=== PATIENT | male | born 1955 | race Caucasian/White ===

== ENCOUNTER → 2016-08-31 | Outpatient (CLI) | payer BC ==
--- NOTE | 2016-09-01 10:32 | CARD ---
APPROVED REPORT EXAM: Two-dimensional and M-mode echocardiogram with Doppler and color Doppler. Other Information Quality : Average Rhythm : NSR INDICATION Arrhythmia Tachycardia 2D DIMENSIONS RVDd3.8 (2.9-3.5cm)Left Atrium(2D)4.0 (1.6-4.0cm) IVSd1.0 (0.7-1.1cm)Aortic Root(2D)3.2 (2.0-3.7cm) LVDd3.7 (3.9-5.9cm)LVOT Diameter2.1 (1.8-2.4cm) PWd1.0 (0.7-1.1cm)LVDs2.3 (2.5-4.0cm) FS (%) 39.7 %SV42.4 ml LVEF(%)60.0 (>50%) Aortic Valve AoV Peak Avery.116.1cm/sAoV VTI18.0cm AO Peak GR.5.4mmHgLVOT Peak Avery.94.4cm/s LVOT VTI 19.31cmAO Mean GR.3mmHg RUBI (VMAX)2.73pg5BWB (VTI)3.56cm2 AI P 1/2 Ixfs956ia Mitral Valve MV E Crxysmxp74.7cm/sMV DECEL QRRN624hy MV A Dloiyeeh21.9cm/sMV E Mean Gr.1mmHg MV SIL41ayV/A Ratio0.8 MV A Xgogbxgg916kvSJH (PHT)3.33cm2 TDI E/Lateral E'6.4E/Medial E'8.6 Pulmonary Valve PV Peak Rayezwjf118.8cm/sPV Peak Grad.5mmHg RVOT VTI14.6cm Tricuspid Valve TR P. Yrqqjrxu962ey/sRAP YQKUSVCW4ltQv TR Peak Gr.09rvDvAJYR84whXx Pulmonary Vein S1 Momddgjg35.6cm/sD2 Qnaydrbh95.3cm/s LEFT VENTRICLE The left ventricle is normal size. There is normal left ventricular wall thickness. Left ventricle sy stolic function is normal. The Ejection Fraction is 55-60%. There is normal LV segmental wall motion. Tissue Doppler imaging reveals mild left ventricular diastolic dysfunction. Transmitral Doppler flow pattern is abnormal. RIGHT VENTRICLE The right ventricle is normal size. The right ventricular systolic function is normal. ATRIA The left atrium size is normal. The right atrium size is normal. The interatrial septum is intact wit h no evidence for an atrial septal defect or patent foramen ovale as noted on 2-D or Doppler imaging. AORTIC VALVE The aortic valve is mildly calcified. The aortic valve is trileaflet. Doppler and Color Flow revealed trace aortic regurgitation. There is no significant aortic valvular stenosis. MITRAL VALVE The mitral valve leaflets are thickened. There is no mitral valve stenosis. Doppler and Color Flow re vealed trace mitral regurgitation. TRICUSPID VALVE The tricuspid valve is normal in structure and function. Doppler and Color Flow revealed mild tricusp id regurgitation. The PA pressure was estimated at 38 mmHg. There is no tricuspid valve stenosis. PULMONIC VALVE The pulmonic valve is not well visualized. Doppler and Color Flow revealed no pulmonic valvular regur gitation. There is no pulmonic valvular stenosis. GREAT VESSELS The aortic root is normal in size. Normal pulmonary venous flow (Doppler). The IVC is normal in size and collapses >50% with inspiration. PERICARDIAL EFFUSION There is no evidence of significant pericardial effusion. Critical Notification Critical Value: No <Conclusion> The left ventricle is normal size. Left ventricle systolic function is normal. The Ejection Fraction is 55-60%. There is normal left ventricular wall thickness. There is no significant aortic valvular stenosis. Doppler and Color Flow revealed trace aortic regurgitation. Doppler and Color Flow revealed trace mitral regurgitation. Doppler and Color Flow revealed mild tricuspid regurgitation. The PA pressure was estimated at 38 mmHg. There is no evidence of significant pericardial effusion.
== END | disposition home or self-care (01) ==
LOC: ECHO 07:43
PROVIDERS: ATTEND Family Medicine
DX: I35.1 Nonrheumatic aortic (valve) insufficiency (principal); I34.0 Nonrheumatic mitral (valve) insufficiency; I07.1 Rheumatic tricuspid insufficiency; I70.0 Atherosclerosis of aorta; R00.0 Tachycardia, unspecified
CPT/HCPCS: 93306

== ENCOUNTER → 2016-09-05 | Outpatient (CLI) | payer BC ==
--- NOTE | 2016-09-08 09:52 | EKG ---
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 No pauses greater than 1.5 seconds were seen. Electronically Signed On 09-11-2016 18:58:36 CDT by Freddie Duarte
== END | disposition home or self-care (01) ==
LOC: EKG 08:11
PROVIDERS: ATTEND Family Medicine
DX: R00.0 Tachycardia, unspecified (principal)
CPT/HCPCS: 93225; 93226